=== PATIENT | female | born 1970 | race Caucasian/White ===

== ENCOUNTER → 2020-07-11 09:18 | Outpatient (CLI) | payer OTHER, SELFPAY ==
[2020-07-12 14:42] LABS: Calcium 9.2 mg/dL (8.7-10.2); Parathyroid Hormone, Intact 27 pg/mL (15-65)
== END ==
PROVIDERS: PCP Student in an Organized Health Care Education/Training Program; Referring Provider Student in an Organized Health Care Education/Training Program; Visit Provider Student in an Organized Health Care Education/Training Program
DX: R47.89 Other speech disturbances (principal)
CPT/HCPCS: 36415; 82310; 83970

== ENCOUNTER → 2021-01-09 08:54 | Outpatient (CLI) | payer OTHER, SELFPAY ==
[2021-01-09 11:02] LABS: COVID19 -Nasal RAPID Negative (Negative)
== END ==
PROVIDERS: PCP Student in an Organized Health Care Education/Training Program; Visit Provider Physician Assistant
DX: Z01.812 Encounter for preprocedural laboratory examination (principal); Z20.822 Contact with and (suspected) exposure to COVID-19
CPT/HCPCS: 87635

== ENCOUNTER 2021-01-11 05:55 | Day surgery (SDC) | payer OTHER, SELFPAY ==
[2021-01-11] VITALS (8 sets, daily range): BP systolic 110–120; BP diastolic 56–82; PULSE 79–92; RESP 11–18; TEMP 36.4–36.6; O2SAT 95–100; BMI 39.3
[2021-01-11] MEDS: LACTATED RINGERS 1,000 ML 42 ML IV (07:10)
--- NOTE | 2021-01-11 07:26 | PM.PREOP ---
Pre-operative Note COVID-19 COVID-19 status: Negative Result date/Date tested (Pos, Neg/Pending): 01/09/21 Interval Note History & Physical reviewed/Exam performed by Physician: Yes Changes to H&P: No
[2021-01-11] MEDS: CEFAZOLIN 2 GM/100 ML FROZ.PIGGY IV (08:10)
--- NOTE | 2021-01-11 08:18 | SUR.PREOP ---
Block start time [0747] . Monitoring initiated and maintained throughout procedure. Oxygen given per anesthesiologist instructions, midazolam and fentanyl given by Dr. Noland. Patient remained stable throughout procedure, no adverse reactions noted. Block end time [0809]. Pt left room in stable condition transported to OR by SAIGE Mary .
--- NOTE | 2021-01-11 08:34 | SUR.OPER ---
Supine on padded OR bed, head on pillow, arms secured on padded arm boards at <90 degrees abduction, bump under left hip, left leg under control of surgeon,legs uncrossed, safety belt at pelvis, tape over blanket over right lower leg.
[2021-01-11] MEDS: BUPIVACAINE 0.25% W/ EPI 30 ML VIAL INJ (08:43)
--- NOTE | 2021-01-11 08:55 | PM.PROC.1 ---
Procedures Date/Time Date of procedure: 01/11/21 Time of procedure: 07:45 General Procedure description: Ultrasound guided popliteal sciatic and adductor canal saphenous nerve blocks for post op pain control after left ankle surgery by Dr. Caro. Risk and benefits of procedure discussed with patient. ASA monitoring applied to patient. Oxygen given via nasal cannula. 2 mg Versed and 100 mcg fentanyl given for procedural sedation. Skin site was prepped with chlorhexidine and allowed to fully dry. Sterile gloves, mask, hat and probe cover were used to maintain sterility. 2% lidocaine and 30ga needle was used to make a small skin wheal at needle insertion site. Under ultrasound guidance, a 21ga 100mm Pajunk needle was directed near the division of the sciatic nerve into tibial and peroneal nerve in the popliteal fossa (lateral approach). Patient reported no parasthesias. After negative aspiration, 20 mL 0.5% ropivicaine and 5mg dexamethasone were injected around sciatic nerve. Patient tolerated procedure well. In similar fashion, adductor canal/saphenous nerve block was performed. Using US guidance, 100mm Pajunk needle directed into adductor canal near femoral artery at level of mid thigh. After negative aspiration, 20ml of 0.5% ropivacaine and 5mg dexamethasone were injected. Upper photo: US of sciatic nerve division at popliteal fossa Lower photo: US of adductor canal at mid thigh
--- NOTE | 2021-01-11 10:47 | SUR.PHASEI ---
Pt awoke, stable pacu stay, no pain, L leg elevated, ice behind knee, Dr. Caro spoke at length with pt at the bedside.
--- NOTE | 2021-01-11 11:14 | P.OP_ITS ---
Operative Date/Time/Diagnoses Date of procedure: 01/11/21 Time of procedure: 08:15 Pre-op diagnosis: osteochondral lesion left talus M93.272 instability left ankle joint M25.372 Post-op diagnosis: same Procedure & Clinicians Procedure: 1. Unlisted procedure of left leg or ankle CPT code 50868 please compare to CPT code 76453. This was an arthrotomy debridement and treatment of talus osteochondral lesion with allograft cartilage 2. osteotomy tibia medial malleolus with fixation. CPT code 49511, left Same procedure as scheduled: Yes Indications: the patient is a 51-year-old female with a symptomatic medial malleolus osteochondral defect on the medial shoulder that measures roughly 8 x 18 mm. She has had instability and mechanical symptoms in the left ankle. This bothers her every day. She has failed conservative treatment and has been indicated for operative debridement and cartilage allografting with possible medial malleolus as indicated for exposure. The risks and benefits of the procedure have been discussed with the patient even opportunity to ask questions. The risks of surgery include but are not limited to infection, malunion, nonunion, persistence of pain, damage to nerves and blood vessels, posttraumatic arthritis, DVT, PE, cardiopulmonary complications and . The patient expressed a thorough understanding of the risks and benefits of surgery and has elected to proceed. Consent was signed in the office. Surgeon: Kimberley Caro Click Yes if Unassisted: Yes Anesthesia Type: Peripheral nerve block and Local Operative Notes Findings: Medial malleolus osteotomy was completed for exposure. This was later fixed with 2x 4.0 mm cannulated screws from the Arthrex set large medial shoulder osteochondral lesion with large loose cartilage flap measuring 1.8 x 0.8 cm. Once debrided osteochondral defect measured roughly 2 cm by 1 cm ( 200 millimeters squared). this was debrided and drilled. Allograft cartilage and spun autologous platelet rich plasma then mixed and placed into the defect which was filled to a line to line with the surrounding cartilage. This was then coated with a thin layer of fibrin glue and allowed to harden. Closure Type: primary Specimen(s): none sent Prosthetic devices, grafts, tissues, transplants, or devices: 2 x 4.0 mm cannulated screws Arthrex set. 45 mm each. One short thread 1 long thread screw Arthrex bio cartilage and PRP the plate to the osteochondral defect covered with fibrin glue Estimated Blood Loss (mL): 5 Blood products transfused: none Tourniquet time (min): 86 Procedure in detail: patient was seen the preoperative area the site of surgery was marked informed consent confirmed. She was brought back to the operating room by the anesthesia team. A preoperative regional block was placed for postoperative pain control. Patient was positioned supine on the operative table. All bony prominences well padded. An SCD was placed on the contralateral lower extremity. Well-padded thigh tourniquet was placed on the operative extremity. General anesthetic was administered. The left lower extremities prepped and draped in standard sterile fashion. Formal time-out procedure was performed confirming the patient's side and site of surgery administration of appropriate preoperative antibiotics and presence of informed consent. All were in agreement. Implants were in the room and accounted for. Attention turned to the left lower extremity an Esmarch was used for exsanguination the tourniquet was raised on the thigh to 250 mm Hg. anterior medial arthrotomy was completed just anterior to the medial malleolus and medial to the tibialis anterior tendon. This taken down through the skin subcutaneous tissue. An arthrotomy was made with the a deep knife and the tibiotalar joint was exposed. With the terminal plantar flexion there was still incomplete visualization of the posterior and medial shoulder lesion therefore a elective medial malleolus osteotomy was required to facilitate osteochondral defect exposure. At this point soft tissue elevation was completed posteriorly around the medial malleolus. A prep proposed osteotomy site was marked and confirmed under mini C-arm. K-wires for the 4-0 screws were then placed and then pre drilled. The osteotomy was made with the saw under cooling. And this was completed with an osteotome. The medial malleolar osteotomy was then open booked and held with a smooth lamina packer sausage and wiener providing excellent visualization of the posterior medial shoulder osteochondral defect. This was inspected incl uded a large loose cartilage flap that was open booked toward the medial gutter. The loose cartilage flap measured roughly 18 x 8 mm. This was removed exposing a defect. The defect base was debrided and then drilled with a K-wire to facilitate bleeding. The cartilage was debrided back to stable vertical borders. The defect then measured a 2 cm x 1 cm for roughly 200 millimeters squared lesion. At this time the wound was thoroughly dried out. The autologous platelet rich plasma was drawn and spun down and mixed with the BioCartilage allograft on the back table to create the cartilage allograft putty. This was then injected using the injector into the void. The allograft was then smoothed aligned to line with the surrounding cartilage using the injector and finished with a [place]. Few drops of fibrin glue was then placed over this and the area was allowed to dry for 5 minutes. Once this was completed the ankle was taken through range of motion. The cartilage surface with smooth and a matched the tibial plafond. At this point the wound was thoroughly irrigated. The medial malleolus osteotomy was then reduced and held with a pointed reduction clamp. The guidewires were reintroduced through the drill holes and 2 x 4.0 cannulated screws from the Arthrex set were placed across the osteotomy site in lag fashion for compression. Final x-rays were taken AP mortise and lateral confirming hardware placement and alignment. Capsule was closed. tourniquet was released. A deep closure with a 2-0 Vicryl subcutaneous with 4-0 Monocryl and 3-0 nylon suture. Dressings were placed with Xeroform gauze Webril and a U splint using the Ortho Glass. Patient was woken from anesthesia and taken to recovery room in good condition. There no immediate complications from this procedure. All counts were correct Complications: none Post-operative Condition: stable Disposition: PACU Plan for aftercare: nonweightbearing left lower extremity. Elevate above the heart level for the 1st 2 weeks after surgery. In 2 weeks will return to clinic for suture removal will be placed into a boot at that time and start some gentle dorsiflexion plantar flexion but remain nonweightbearing for a total of 6 weeks. Return to clinic at 6 week postop visit for x-rays and initiation of partial weight-bearing. she will start aspirin 325 mg daily for postoperative DVT prophylaxis
== END 2021-01-11 11:30 | disposition home or self-care (01) ==
PROVIDERS: PCP Student in an Organized Health Care Education/Training Program; Referring Provider Orthopaedic Surgery Foot and Ankle Surgery; Visit Provider Orthopaedic Surgery Foot and Ankle Surgery
PROC: (CPT 27705; principal; 2021-01-11 07:45)
DX: M93.272 Osteochondritis dissecans, left ankle and joints of left foot (principal); M25.372 Other instability, left ankle
CPT/HCPCS: 27705; 64450; J0690; J1100; J2250; J2405; J2704; J3010

== ENCOUNTER → 2021-07-29 13:33 | Outpatient (CLI) | payer OTHER, SELFPAY ==
--- NOTE | 2021-07-29 | DI.MRI.S_ITS ---
PROCEDURE: MR ANKLE LT WO CON INDICATIONS: Osteochondritis dissecans, left ankle and joints o TECHNIQUE: Noncontrast sagittal T1 spin echo and T2 fast spin echo with fat saturation, axial proton density fast spin echo and T2 fast spin echo with fat saturation, coronal T1 spin echo and T2 fast spin echo with fat saturation through the ankle/hindfoot. COMPARISON: None. FINDINGS: Image quality: Susceptibility artifact is noted from the patient's medial malleolar fixation hardware. Bones and joints: No bone marrow contusions or fractures. Faint T2 hyperintense signal in the anterior subtalar articulation, likely reflecting subchondral edema/osteochondral injury. 6 mm irregularity of the medial talar dome, compatible with osteochondral injury. An os navicular is again noted. Prominence of the posterior lateral talar tubercle. Small tibiotalar joint effusion. Medial structures: The posterior tibialis, flexor digitorum longus, and flexor hallucis longus tendons are intact. The posterior tibial neurovascular bundle appears normal within the tarsal tunnel, without extrinsic mass effect. The deltoid ligament appears to be intact. The spring ligament is intact. Lateral structures: The calcaneofibular and posterior talofibular ligaments appear intact. Disruption of the anterior talofibular ligament. More superiorly, the anterior and posterior tibiofibular ligaments appear intact, as is the intermalleolar ligament. T2 hyperintense signal within the tibiofibular syndesmosis, measuring up to 3 mm. The peroneus longus and brevis tendons demonstrate normal location and morphology. Minimal T2 hyperintense signal within the sinus tarsi. The fatty signal is predominantly maintained. Visualized sinus tarsi components (cervical ligament, interosseous talocalcaneal ligament, roots of the inferior extensor retinaculum) appear normal. The calcaneonavicular and calcaneocuboid components of the bifurcate ligament appear intact. The dorsal calcaneocuboid ligament appears intact. Anterior structures: The tibialis anterior, extensor hallucis longus, and extensor digitorum longus tendons appear intact. The dorsal talonavicular ligament appears intact. Posterior and plantar structures: Achilles tendon is intact. Medial and lateral bands of the plantar fascia are of normal thickness. Medial greater than lateral soft tissue swelling. IMPRESSION: 1. Subchondral edema/osteochondral injury of the anterior subtalar articulation and the medial talar dome. 2. Small tibiotalar joint joint effusion. 3. And disruption of the anterior talofibular ligament. 4. Mild widening of the talofibular syndesmosis. 5. Minimal edema in the sinus tarsi. 6. Medial greater than lateral soft tissue swelling. Dictated by: Nicko Hastings M.D. on 07/29/2021 at 16:43 Approved by: Nicko Hastings M.D. on 07/29/2021 at 17:01
== END ==
PROVIDERS: PCP Student in an Organized Health Care Education/Training Program; Referring Provider Orthopaedic Surgery Foot and Ankle Surgery; Visit Provider Orthopaedic Surgery Foot and Ankle Surgery
DX: M93.272 Osteochondritis dissecans, left ankle and joints of left foot (principal); S93.492A Sprain of other ligament of left ankle, initial encounter; M79.89 Other specified soft tissue disorders; M25.472 Effusion, left ankle
CPT/HCPCS: 73721

== ENCOUNTER → 2022-05-06 14:23 | Outpatient (CLI) | payer OTHER, SELFPAY ==
--- NOTE | 2022-05-06 | DI.MG.S_ITS ---
BILATERAL DIGITAL SCREENING MAMMOGRAM 3D/2D WITH CAD: 05/06/2022 CLINICAL: Routine screening. Baseline exam. No prior exams were available for comparison. The tissue of both breasts is heterogeneously dense. This may lower the sensitivity of mammography. Current study was also evaluated with a Computer Aided Detection (CAD) system. There are benign calcifications in both breasts. No significant masses, calcifications, or other findings are seen in either breast. IMPRESSION: BENIGN There is no mammographic evidence of malignancy. A 1 year screening mammogram is recommended. Based on the Tyrer Cuzick model (a risk assessment model) the patient's lifetime risk is 7.3% and her 10 year risk is 1.9%. According to the ACR, ACS, and NCCN guidelines, an annual breast MRI exam along with mammogram is recommended if the patient's lifetime risk is 20% or greater. This exam was interpreted at Station ID: [id number]. NOTE: For mammograms, a report in lay terms will be sent to the patient. Approximately 15% of breast malignancies will not be visualized mammographically. In the management of a palpable breast mass, a negative mammogram must not discourage biopsy of a clinically suspicious lesion. Electronically Signed By: Seferino arreola/sandie:05/06/2022 21:38:42 letter sent: Normal Exam ACR BI-RADS Category 2: Benign Finding(s) 3342F
== END ==
PROVIDERS: PCP Student in an Organized Health Care Education/Training Program; Referring Provider Student in an Organized Health Care Education/Training Program; Visit Provider Student in an Organized Health Care Education/Training Program
DX: Z12.31 Encounter for screening mammogram for malignant neoplasm of breast (principal)
CPT/HCPCS: 77063; 77067

== ENCOUNTER → 2022-06-17 09:41 | Outpatient (CLI) | payer OTHER, SELFPAY ==
[2022-06-17 11:04] LABS: COVID19 -Nasal RAPID Negative (Negative)
== END ==
PROVIDERS: PCP Student in an Organized Health Care Education/Training Program; Visit Provider Surgery
DX: Z01.812 Encounter for preprocedural laboratory examination (principal); Z20.822 Contact with and (suspected) exposure to COVID-19
CPT/HCPCS: 87635; C9803

== ENCOUNTER 2022-06-18 09:55 | Day surgery (SDC) | payer OTHER, SELFPAY ==
[2022-06-18] VITALS (10 sets, daily range): BP systolic 97–124; BP diastolic 59–84; PULSE 70–92; RESP 10–16; TEMP 35.6–37; O2SAT 91–100; BMI 38.9
[2022-06-18] MEDS: LACTATED RINGERS 1,000 ML 84 ML IV (10:48)
--- NOTE | 2022-06-18 11:22 | P.HP_ITS ---
History of Present Illness History of Present Illness Date Patient Seen: 06/18/22 Time Patient Seen: 11:29 Chief complaint: [facility] Narrative: Colon cancer screening, 1st colonoscopy. No family history, no symptoms. 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 Surgical History History of tonsillectomy S/P [facility] Family & Social History Social History: household members spouse Tobacco & Substance use: Smoking Status Former smoker alcohol intake never Substance Use Type does not use Meds Home Medications and Allergies Home Medications Medication Instructions Recorded Confirmed Type albuterol sulfate 90 mcg/actuation 2 puff inhalation Q4-6H PRN 12/26/19 06/18/22 Rx aerosol inhaler shortness of breath or wheezing #18 grams escitalopram oxalate 10 mg tablet 10 mg PO DAILY 01/07/21 06/18/22 History (Lexapro) Allergies Allergy/AdvReac Type Severity Reaction Status Date / Time erythromycin base Allergy Unknown Unlisted Verified 06/18/22 10:33 azithromycin Allergy Heart Verified 06/18/22 10:33 palpatations Review of Systems Review of Systems ROS: Yes All systems reviewed with the patient and are negative except as otherwise documented Exam Vital Signs (past 8 hours): - 06/18/22 10:36 Temperature 98.6 F Pulse Rate 92 H Respiratory Rate 16 Blood Pressure 124/84 Pulse Oximetry 94 Oxygen Delivery Method Room Air Oxygen Delivery Method Room Air Const General: cooperative, healthy appearing and comfortable Nutritional Appearance: obese HENMT Head: normocephalic and atraumatic Eyes Sclera: sclerae normal Neck Neck: trachea midline Chest Chest: normal inspection of the chest Resp Effort & Inspection: normal respiratory effort and able to speak in complete sentences Cardio Rate: regular rate Rhythm: regular rhythm GI Palpation: soft Skin General: no rashes or lesions noted and elasticity normal Neuro General: patient alert, patient awake and patient oriented x3 Extrem General: normal to inspection Psych Appearance: grossly normal Mental Status: mental status grossly normal Attitude: cooperative Judgment: judgment good Assessment & Plan Assessment & Plan narrative: colon cancer screening colonoscopy with moderate sedation COVID-19 COVID-19 status: Negative Time Spent With Patient Time with patient: less than 30 minutes Critical Care time: I spent a total of [] minutes of critical care time on this patient's care today; this time is exclusive of procedural time.
[2022-06-18] MEDS: LIDOCAINE JELLY 2% 5 ML 1 APPLIC TOP (11:35)
[2022-06-18] MEDS: fentaNYL 100 MCG/2 ML INJ 150 MCG IV (11:41)
[2022-06-18] MEDS: MIDAZOLAM 5 MG/5 ML VIAL 10 MG IV (11:46)
--- NOTE | 2022-06-18 11:56 | PM.OP.COLON ---
Operative Date/Time/Diagnoses Date of procedure: 06/18/22 Time of procedure: 11:56 Pre-op diagnosis: Colon cancer screening Post-op diagnosis: same Procedure & Clinicians Study performed: Colonoscopy with moderate sedation Same procedure as scheduled: Yes Indications: Colon cancer screening Surgeon: Starr Gruber Procedure Notes Procedure in detail: Preop diagnosis: Colon cancer screening Postop diagnosis: Same Operative procedure: Colonoscopy with moderate sedation Surgeon: Roshni Gruber MD Anesthetic: Fentanyl 150 mcg Versed 10 mg Findings: Normal colonoscopy. Scattered small diverticuli throughout the colon. Difficult sedation Procedure: Patient placed in a lateral position. Rectal exam performed showing normal tone no masses. Colonoscope was inserted into the rectum and advanced to ileocecal valve with minimal difficulty. Insufflation extraction of the scope as above findings. Retroflexed was included in the procedure. Findings: Small scant diverticuli throughout the colon. No polyps. Plan: Repeat colonoscopy in 10 years unless otherwise indicated by changing clinical condition or family history Sedation minutes: 20 Specimen(s): none sent Complications: none Impression: Normal colon. Difficult on sedation recommend max with next colonoscopy Post-procedure Recommendations: Colonoscopy in 10 years Follow up: as needed Disposition: PACU
--- NOTE | 2022-06-18 12:26 | SUR.PHASEI ---
Pt doing well, deep breathing & IS use to maintain O2 SATS. Called spouse and updated on extended recovery R/T medication doses need for procedure. Pt denies any distress and following instructions well.
== END 2022-06-18 13:10 | disposition home or self-care (01) ==
PROVIDERS: PCP Student in an Organized Health Care Education/Training Program; Referring Provider Surgery; Visit Provider Surgery
PROC: 0DJD8ZZ Inspection of Lower Intestinal Tract, Via Natural or Artificial Opening Endoscopic (ICD-10-PCS; CPT 45378; principal; 2022-06-18 11:30)
DX: Z12.11 Encounter for screening for malignant neoplasm of colon (principal); K57.30 Diverticulosis of large intestine without perforation or abscess without bleeding
CPT/HCPCS: 45378; 99152; J2250; J3010